=== PATIENT | male | born 1965 | race Caucasian/White ===

== ENCOUNTER → 2016-10-21 | Outpatient (CLI) | payer OTHER ==
[~2016-10-21] MED LIST: IBUP800T OR; LEVO2TA OR; LIDO5DIS EX; MULTIVIT OR; Mobic OR; NEUR400C OR; NICO21DI4 TD; PROV100T OR; SKEL800T5 OR; TRAM50TA2 OR; VOLT1GEL TOP
--- NOTE | 2016-10-21 17:26 | REP ---
Left shoulder series: Three views. History: Acute pain in the left shoulder. Findings: The left glenohumeral and acromioclavicular joints are normally aligned. Periarticular soft tissues are unremarkable. No fracture or subluxation is seen. Impression: Negative views of the left shoulder. Signed by Joshua Rodriguez MD 10/21/2016 05:35 P
== END ==
LOC: M LRY 15:07
PROVIDERS: ATTEND Nurse Practitioner Family
DX: M25.512 Pain in left shoulder (principal)
CPT/HCPCS: 73030; G0463

== ENCOUNTER 2022-04-24 08:35 | Emergency (ER) | payer OTHER ==
[~2022-04-24] VITALS: Ht 195.6 cm; Wt 104.6 kg
[2022-04-24 08:36] VITALS: BP 175/88
== END 2022-04-24 09:15 | disposition left against medical advice (07) ==
LOC: M ED 08:35
DX: Z53.9 Procedure and treatment not carried out, unspecified reason (principal)

== ENCOUNTER → 2025-01-16 | Outpatient (CLI) | payer OTHER | LOC: M RAD 15:44 | PROVIDERS: ATTEND Physician Assistant | DX: J92.9 Pleural plaque without asbestos (principal); I25.10 Atherosclerotic heart disease of native coronary artery without angina pectoris; I25.84 Coronary atherosclerosis due to calcified coronary lesion; K44.9 Diaphragmatic hernia without obstruction or gangrene; D17.71 Benign lipomatous neoplasm of kidney; Z87.891 Personal history of nicotine dependence ==

== ENCOUNTER → 2025-06-18 | Outpatient (CLI) | payer OTHER ==
[~2025-06-18] MED LIST changes: +ISOVUE-370 76% 100 ML VIAL As Ordered ONE
== END ==
LOC: M RAD 14:29
PROVIDERS: ATTEND Family Medicine
DX: N28.89 Other specified disorders of kidney and ureter (principal); N28.1 Cyst of kidney, acquired
CPT/HCPCS: 74178; 82565; Q9967